=== PATIENT | male | born 1970 ===

== ENCOUNTER 2023-04-16 10:45 | Outpatient (RCR) | payer MEDICARE, SELFPAY ==
[2023-02-06 10:46] VITALS: BMI 51.9
== END 2023-05-05 09:59 | disposition home or self-care (01) ==
LOC: ANHDMC 10:45
DX: E11.00 Type 2 diabetes mellitus with hyperosmolarity without nonketotic hyperglycemic-hyperosmolar coma (NKHHC) (principal); Z71.3 Dietary counseling and surveillance
CPT/HCPCS: 97802